=== PATIENT | female | born 1950 | race Caucasian/White ===

== ENCOUNTER → 2016-06-21 | Day surgery (SDC) | payer MEDICARE, MEDICAID ==
[~2016-06-21] VITALS: Ht 154.9 cm; Wt 77.1 kg
[2016-06-21] VITALS (9 sets, daily range): BP systolic 129–146; BP diastolic 60–76
[~2016-06-21] MED LIST: ASACOL HD800 MG ORAL; ATROVENT30 ML NASAL; AZELASTINE HCL6 ML OP; Akten 3.5% 1ml Btl LEFT EYE SCH; BSS 15ml BTL ONE; BSS 500ml btl ONE; CALCIUM500 M3 PO; CELEXA20 MG PO; CITALOPRAM HBR20 M1 ORAL; CLINDAMYCIN HC300 MG ORAL; CLONAZEPAM0.5 M1 PO; DEXILANT60 MG PO; Dexamethasone 4mg/ml vial ONE; EFFEXOR XR75 MG ORAL; EPINEPHrine 1mg/1ml Amp ONE; EPIPEN 2-P0.3 MG/0.3 IM; FLORINEF0.1 MG ORAL; FOLIC ACID1 MG ORAL; FOLIC ACID1 MG PO; GABAPENTIN100 MG ORAL; Gatifloxacin Opth Solution 0.5% LEFT EYE SCH; IBUPROFEN600 MG PO; ILOTYCIN3.5 GM TOP; IPRATROPIU0.2 MG/1 M HHN; KLONOPIN0.5 MG ORAL; LASIX20 M1 ORAL; LEVOXYL50 MCG ORAL; LIPITOR20 MG ORAL; LORTAB 7.5-5001 EACH PO; Lidocaine 1% MPF 10mg/ml 5ml ONE; MAXALT10 MG PO; MAXALT5 MG PO; METHOTREXATE2.5 MG PO; MONTELUKAST SOD10 MG ORAL; MULTIVITAMINS1 EAC2 ORAL; OMNARIS NS; OMNARIS12.5 GM NS; POTASSIUM CHLO10 MEQ ORAL; PREDNISONE10 MG ORAL; PREMARIN0.3 MG ORAL; Phenylephrine 2.5% Op Soln LEFT EYE SCH; Povidone-Iodine 5% opth solution ONE; Sodium Hyaluronate 14 mg/ml 0.85ml ONE; TOPAMAX50 MG PO; TOPIRAMATE100 MG ORAL; TOVIAZ8 MG ORAL; TOVIAZ8 MG PO; TRAMADOL HCL50 MG ORAL; Tobradex Opth Susp 2.5ml LEFT EYE SCH; Tropicamide 1% Opth Soln LEFT EYE SCH; VAGIFEM10 MC1 VG; VITAMIN D1000 UNI1 ORAL; VITAMIN D250000 UNI1 ORAL; XOPENEX HFA15 GM IH; XOPENEX0.63 MG/3 HHN; ZANTAC150 MG ORAL; ZOMETA IV; [UNRECOGNIZED DRUG - OTHER] PO
--- NOTE | 2016-06-21 07:42 | Pre-Procedure Note/Attestation ---
Pre-Procedure Note/Attestation Complete Prior to Procedure Planned Procedure: left Procedure Narrative: cataract extraction with implant left eye Indications for Procedure Pre-Operative Diagnosis: cataract left eye Attestation I attest that I discussed the nature of the procedure; its benefits; risks and complications; and alternatives (and the risks and benefits of such alternatives ), prior to the procedure, with the patient (or the patient's legal telephone service representative). I attest that, if there was a reasonable possibility of needing a blood transfusion, the patient (or the patient's legal telephone service representative) was given the [facility] standardized written summary, pursuant to the Jerry Sourav Blood Safety Act ([place] Health and Safety Code # 1645, as amended). I attest that I re-evaluated the patient just prior to the surgery and that there has been no change in the patient's H&P, except as documented below: BINU BASS Jun 21, 2016 07:42
--- NOTE | 2016-06-21 09:18 | Anethesia Preoperative Eval ---
Anesthesia Pre-op PMH/ROS General Date of Evaluation: Jun 21, 2016 Time of Evaluation: 09:05 Anesthesiologist: Yolette ASA Score: ASA 2 Mallampati Score Class I : Soft palate, uvula, fauces, pillars visible Class II: Soft palate, uvula, fauces visible Class III: Soft palate, base of uvula visible Class IV: Only hard plate visible Mallampati Classification: Class II Surgeon: Abhishek Diagnosis: Cataract left eye Surgical Procedure: Cataract Extraction left eye Anesthesia History: none Family History: no anesthesia problems Allergies: Coded Allergies: PENICILLINS (Verified Allergy, Severe, Hives/ANAPHYLACTIC SHOCK, 03/20/12) LATEX (Verified Allergy, Intermediate, Hives, 03/20/12) MEPERIDINE (Verified Allergy, Intermediate, Hives, 03/20/12) METOPROLOL (Verified Allergy, Intermediate, Hives/("HEART STOPS"=ADVERSE REACTION), 03/20/12) ADHESIVE (Verified Allergy, Rash, 03/20/12) ASPIRIN (Verified Allergy, 03/18/12) Uncoded Allergies: ASPIRIN (Adverse Reaction, Mild, GI UPSET, 03/20/12) IV STEROID (Adverse Reaction, Mild, GI UPSET, 03/20/12) Past Medical History Cardiovascular: Reports: HTN Pulmonary: Reports: asthma Gastrointestinal/Genitourinary: Denies: CRI, ESRD, GERD, other Neurologic/Psychiatric: Reports: depression/anxiety Endocrine: Reports: hypothyroidism HEENT: Reports: cataract (L) Hematology/Immune: Denies: DVT, anemia, bleeding disorder, other Musculoskeletal/Integumentary: Denies: DDD, DJD, OA, RA, edema, other PMH Narrative: HTN, Hypothyroidism, asthma Anesthesia Pre-op Phys. Exam Physician Exam Last Vital Signs Date Time Temp Pulse Resp B/P Pulse Ox O2 Delivery O2 Flow Rate FiO2 06/21/16 08:21 98.4 63 18 142/76 96 Room Air Constitutional: NAD Neurologic: CN 2-12 intact Cardiovascular: RRR Respiratory: CTA Gastrointestinal: S/NT/ND Airway Exam Mallampati Score: Class II MO: full ROM: full Teeth: intact Dentures: no lower, no upper LENNIE LANCASTER D.O. Jun 21, 2016 09:18
--- NOTE | 2016-06-21 09:40 | Brief Operative Note ---
Immediate Post Operative Note Operative Note Pre-op Diagnosis: cataract left eye Procedure: phacoemulsification of cataract with implant left eye Post-op Diagnosis: same as pre-op Surgeon: rose bull Dsp Engineer: none Anesthesiologist: sidra sanches Specimen: none Complications: none Condition: stable Estimated Blood Loss: none Drains: none Implant(s) used?: Yes ROSE BULL Jun 21, 2016 09:40
--- NOTE | 2016-06-21 09:42 | Immediate Post-Op Evaluation ---
Immediate Post-Op Evalulation Immediate Post-Op Evalulation Procedure: Left cataract extraction with IOL Date of Evaluation: Jun 21, 2016 Time of Evaluation: 09:41 IV Fluids: 200ml Blood Products: none Estimated Blood Loss: none Urinary Output: due to void Blood Pressure Systolic: 142 Blood Pressure Diastolic: 70 Pulse Rate: 59 Respiratory Rate: 16 O2 Sat by Pulse Oximetry: 99 Temperature (Fahrenheit): 97.6 Pain Score (1-10): 0 Nausea: No Vomiting: No Complications none Patient Status: awake, reacts Hydration Status: adequate Drug: n/a LENNIE LANCASTER D.O. Jun 21, 2016 09:42
--- NOTE | 2016-06-21 09:45 | 48 Hour Post Anesthesia Eval ---
Post Anesthesia Evaluation Procedure: Left cataract extraction with IOL Date of Evaluation: Jun 21, 2016 Time of Evaluation: 09:43 Blood Pressure Systolic: 140 0: 62 Pulse Rate: 58 Respiratory Rate: 16 Temperature (Fahrenheit): 97.6 O2 Sat by Pulse Oximetry: 99 Airway: patent Nausea: No Vomiting: No Pain Intensity: 0 Hydration Status: adequate Cardiopulmonary Status: stable Mental Status/LOC: patient returned to baseline Follow-up Care/Observations: as per surgeon Post-Anesthesia Complications: none Follow-up care needed: N/A LENNIE LANCASTER D.O. Jun 21, 2016 09:45
--- NOTE | 2016-06-21 15:57 | Operative Note - Dictated ---
DATE OF OPERATION: 06/21/2016 PREOPERATIVE DIAGNOSIS: Cataract, left eye. POSTOPERATIVE DIAGNOSIS: Cataract, left eye. PROCEDURE: Phacoemulsification cataract, left eye with placement of posterior chamber intraocular lens. SURGEON: Mainor Weiss M.D. ([facility] [place] FITNESS COACH: None. ANESTHESIA: MAC/topical. ANESTHESIOLOGIST: Dr. Liam De La Vega. INDICATION FOR PROCEDURE: Poor vision, left eye. DESCRIPTION OF FINDINGS: Nuclear sclerotic and cortical cataract, left eye status post RK and Lasix surgery. DESCRIPTION OF PROCEDURE: The patient received a topical anesthetic block consisting of 3.5% Akten eye drops. The eye was then prepped and draped in the usual manner. A lid speculum was placed. An operating Zeiss microscope was positioned. A temporal corneal groove was made with the chantale blade. A SuperSharp blade made a stab incision at the 6 o'clock position. A 0.1 mL of 1% nonpreserved intracameral lidocaine was injected. Healon was instilled into the anterior chamber and a 2.5/2.8 mm trapezoidal chantale blade was used to complete the temporal corneal wound. A cystotome was used to create an anterior capsular flap. Utrata forceps were used to complete the capsulorrhexis. BSS on a cannula was used to hydrodissect the nucleus. The lens nucleus was phacoemulsified in a phacofracture technique. Remaining cortical material was removed with the I/A and the posterior capsule polished with the I/A on Cap vac. Healon was re-instilled into the capsular bag and anterior chamber, and an Walsh foldable one-piece posterior intraocular lens, model ZCB00, power 26.0 diopter, serial # [id number] was placed in the injector. The lens was put in the capsular bag. The I/A tip was used to remove the Healon and position the lens. The wound edge was hydrated with BSS and a blunt-tipped cannula. The wound was checked and found to be watertight. The lid speculum was removed. A drop of TobraDex and a Zymaxid was placed. A clear plastic shield was taped over the eye. The patient tolerated the procedure well and left the operating in good condition. Mainor Weiss M.D. ([facility]) DR: Merna JOB#: [id number] CC: ____ MTDD
== END | disposition home or self-care (01) ==
LOC: SUR 07:03
DX: H25.12 Age-related nuclear cataract, left eye (principal); I10 Essential (primary) hypertension; E03.9 Hypothyroidism, unspecified; F32.9 Major depressive disorder, single episode, unspecified; F41.9 Anxiety disorder, unspecified; J45.909 Unspecified asthma, uncomplicated; M06.9 Rheumatoid arthritis, unspecified; G90.512 Complex regional pain syndrome I of left upper limb; R00.1 Bradycardia, unspecified; Z98.84 Bariatric surgery status; Z96.643 Presence of artificial hip joint, bilateral; Z96.652 Presence of left artificial knee joint; Z90.49 Acquired absence of other specified parts of digestive tract; E89.2 Postprocedural hypoparathyroidism; Z88.1 Allergy status to other antibiotic agents; Z91.040 Latex allergy status; Z88.6 Allergy status to analgesic agent; Z88.5 Allergy status to narcotic agent; Z88.0 Allergy status to penicillin; Z88.8 Allergy status to other drugs, medicaments and biological substances; Z91.018 Allergy to other foods
CPT/HCPCS: 66984; 82962; J0171; J1100; V2632; 94003; 94150